=== PATIENT | female | born 1995 | race American Indian/Alaskan Native ===

== ENCOUNTER 2017-02-28 21:25 | Emergency (ER) | payer OTHER ==
[2017-02-28 22:22] VITALS: BP 118/74
[2017-02-28 23:38] LABS: Basophils % (Auto) 0.3 % (0.0-1.8); Eosinophils % (Auto) 1.4 % (0.0-4.3); Hematocrit 35.4 % (30.3-42.9); Hemoglobin 12.1 gm/dl (10.1-14.3); Mean Corpuscular HGB Conc 34 % (30-34); Mean Corpuscular Hemoglobin 34 pg (28-32); Mean Corpuscular Volume 99 fl (79-97); Platelet Count 177 K/mm3 (140-440); Red Blood Count 3.57 M/mm3 (3.65-5.03); Red Cell Distribution Width 12.8 % (13.2-15.2)
[2017-02-28 23:43] LABS: Anion Gap 16 mmol/L; BUN/Creatinine Ratio 14; Blood Urea Nitrogen 7 mg/dL (7-17); Calcium 8.8 mg/dL (8.4-10.2); Carbon Dioxide 23 mmol/L (22-30); Chloride 101.3 mmol/L (98-107); Glucose 84 mg/dL (65-100); Potassium 3.7 mmol/L (3.6-5.0); Sodium 137 mmol/L (137-145)
[2017-03-01 00:42] LABS: Bilirubin,Urine NEG (Negative); Blood,Urine NEG (Negative); Ketones,Urine NEG (Negative); Leukocyte Esterase,Urine NEG (Negative); Mucus,Urine 3+ /HPF; Nitrite,Urine NEG (Negative); Protein,Urine <15 mg/dL mg/dL (Negative); Urobilinogen,Urine < 2.0 mg/dL (<2.0)
== END 2017-03-01 02:49 | disposition left against medical advice (07) ==
LOC: ED 21:25
DX: Z53.21 Procedure and treatment not carried out due to patient leaving prior to being seen by health care provider (principal)
CPT/HCPCS: 36415; 80048; 81001; 84702; 85025; 93005; 93010

== ENCOUNTER 2017-03-15 10:49 | Outpatient (CLI) | payer OTHER ==
[2017-03-15 11:01] VITALS: BP 113/66
--- NOTE | 2017-03-15 13:48 | Ultrasound Report ---
OB ULTRASOUND ULTRASOUND OB TRANSVAGINAL History well being. Technique: Transabdominal and transvaginal ultrasound with Doppler interrogation. Gestation: Single Position: Cephalic Amniotic Fluid: Normal LORETO = 9.2 cm Placenta: Anterior, right lateral Placental Grade: 2 No evidence for abruption. Heart Rate: 158 BPM Cervical length: 4.7 cm (Normal > 3 cm) NEUROANATOMY VISUALIZED: Choroid Plexus Cerebellum Lateral Ventricle ANATOMY VISUALIZED: Stomach Kidneys Bladder Diaphragm 4 Chamber Heart Heart 3 Vessel Cord Abd. Cord Insert SPINE VISUALIZED: Longitudinal Transverse The following are not demonstrated due to maternal body habitus or lie: Cisterna magnum BPD: 8.2 cm = 33 w 0 d HC: 29.4 cm = 32 w 3 d AC: 27.1 cm = 31 w 1 d FL: 6.1 cm = 31 w 4 d HC/AC Ratio: 1.08 Cephalic Index: 82.9 Estimated Weight: 1796 grams Clinical age = 31 w 2 d EDC: 05/15/17 US Gest. Age = 32 w 0 d EDC: 05/10/17 IMPRESSION: Viable, single intrauterine as described.
[2017-03-15 14:09] LABS: Bacteria,Urine 2+ /HPF (Negative); Bilirubin,Urine NEG (Negative); Blood,Urine NEG (Negative); Ketones,Urine NEG (Negative); Leukocyte Esterase,Urine NEG (Negative); Mucus,Urine FEW /HPF; Nitrite,Urine NEG (Negative); Protein,Urine <15 mg/dL mg/dL (Negative); Urobilinogen,Urine < 2.0 mg/dL (<2.0)
== END 2017-03-15 14:36 | disposition home or self-care (01) ==
LOC: TRG 10:49
PROVIDERS: ATTEND Obstetrics & Gynecology
DX: O47.03 False labor before 37 completed weeks of gestation, third trimester (principal); Z3A.31 31 weeks gestation of pregnancy
CPT/HCPCS: 76805; 76817; 81001

== ENCOUNTER 2017-04-13 11:31 | Outpatient (CLI) | payer OTHER ==
[2017-04-13 12:21] VITALS: BP 105/64
[2017-04-13 12:39] LABS: Bacteria,Urine 2+ /HPF (Negative); Bilirubin,Urine NEG (Negative); Blood,Urine SM (Negative); Color,Urine Yellow (Yellow); Nitrite,Urine NEG (Negative); Protein,Urine <15 mg/dL mg/dL (Negative); Urobilinogen,Urine < 2.0 mg/dL (<2.0); WBC,Urine < 1.0 /HPF (0.0-6.0)
== END 2017-04-13 12:41 | disposition home or self-care (01) ==
LOC: TRG 11:31
PROVIDERS: ATTEND Obstetrics & Gynecology
DX: O47.03 False labor before 37 completed weeks of gestation, third trimester (principal); Z3A.36 36 weeks gestation of pregnancy
CPT/HCPCS: 59025; 81001

== ENCOUNTER 2017-05-07 17:24 | Outpatient (CLI) | payer OTHER ==
[2017-05-07 17:42] VITALS: BP 118/71
== END 2017-05-07 19:02 | disposition home or self-care (01) ==
LOC: TRG 17:24
PROVIDERS: ATTEND Obstetrics & Gynecology
DX: O47.1 False labor at or after 37 completed weeks of gestation (principal); Z3A.38 38 weeks gestation of pregnancy

== ENCOUNTER 2017-05-18 13:36 | Outpatient (CLI) | payer OTHER ==
[2017-05-18] MEDS ORDERED: LACTATED RINGERS 1,000 ML ONE (14:35)
[2017-05-18] MEDS ORDERED: POLYCILLIN/NS 2 GM/100 ML 2 GM/100 ML BAG IV ONE (14:35)
[2017-05-18] MEDS ORDERED: CELESTONE SOLUSPAN IM ONE (14:35)
[2017-05-18 15:23] VITALS: BP 112/69
--- NOTE | 2017-05-18 16:39 | Ultrasound Report ---
FINAL REPORT EXAM: US OB BPP WO NON-STRESS HISTORY: evaluate fluid level TECHNIQUE: Grayscale and color doppler ultrasound of the fetus was performed for biophysical profile. PRIORS: None. FINDINGS: Biophysical profile 8 out of 8 was noted. Scores of 2 out of 2 were given for tone, breathing, amniotic fluid volume and movement. Maximum vertical pocket is 3.9 centimeters. cardiac motion was detected at 133 beats per minute. IMPRESSION: Normal biophysical profile.
--- NOTE | 2017-05-18 16:58 | Ultrasound Report ---
FINAL REPORT PROCEDURE: Limited obstetrical ultrasound. TECHNIQUE: Real-time limited sonographic examination was performed for evaluation of size, position, heartbeat, fluid volume for each fetus with image documentation (1 or more fetuses). CPT 98535 HISTORY: Fluid evaluation. COMPARISON: biophysical profile 05/18/2017. FINDINGS: There is a single viable fetus in cephalic presentation. Cardiac activity is documented at 133 beats per minute. 4 pockets of fluid were measured with the largest pocket measuring 3.4 centimeters. The amniotic fluid index is 9.1 centimeters. IMPRESSION: Amniotic fluid index 9.1 centimeters.
== END 2017-05-18 16:22 | disposition home or self-care (01) ==
LOC: TRG 13:36
PROVIDERS: ATTEND Obstetrics & Gynecology
DX: O48.0 Post-term pregnancy (principal); Z3A.40 40 weeks gestation of pregnancy
CPT/HCPCS: 59025; 76815; 76819; J0290; J0702; J7120